=== PATIENT | male | born 1940 | race Caucasian/White ===

== ENCOUNTER 2021-09-14 18:34 | Observation (INO) ==
[2021-09-14] MEDS ORDERED: STAT IV Infusion **Titration per Protocol STA (18:38)
[2021-09-14] MEDS ORDERED: ONDANSETRON INJ 2 MG/ML 2 ML VIAL IV STA ×2 (18:42→18:56)
[2021-09-14] MEDS ORDERED: hydrALAZINE HCL 20 MG/ML VIAL IV STA ×2 (18:42→18:57)
[2021-09-14] MEDS ORDERED: hydrALAZINE HCL 20 MG/ML VIAL ONE (18:44)
[2021-09-14] MEDS ORDERED: niCARdipine 25 MG in SODIUM CHLORIDE 0.9% 240 ML IV SCH (18:45)
--- NOTE | 2021-09-14 18:47 | Emergency Department Note ---
Impression & Plan Intraparenchymal hematoma of brain, Midline shift of brain due to hematoma, Hemorrhagic cerebrovascular accident (CVA) ED Provider Note NAME: DANTE YBARRA AGE: 80 SEX: M : 1940 ARRIVES VIA: Walk-In INFORMANT: Patient ED PROVIDER(S): Eleazar Llamas DO CHIEF COMPLAINT: Possible stroke HPI: Patient is a 80-year-old male who presents to the ER for left-sided weakness. This all started about 5:20 PM. He sat down prior to this occurring as he felt it coming on. He was complaining of a headache but does not any more. He denies any chest pain or shortness of breath. No belly pain. No nausea, vomiting, or diarrhea. He takes aspirin but no other blood thinners. ROS: See above HPI for pertinent positives & negatives. A total of 10 systems reviewed and were otherwise negative. PAST MEDICAL HISTORY:See Below PAST SURGICAL HISTORY:See Below FAMILY HISTORY:See Below SOCIAL HISTORY:See Below HOME MEDICATIONS:See Below ALLERGIES:See Below VITALS:See Below PHYSICAL EXAMINATION: GENERAL: Sitting up in bed, alert, well appearing, well nourished, no distress, non-toxic EYE EXAM: normal conjunctiva. Left-sided neglect with right-sided gaze OROPHARYNX: no exudate, no erythema, lips, buccal mucosa, and tongue normal and mucous membranes are moist NECK: supple, no nuchal rigidity, no adenopathy, non-tender LUNGS: Clear to auscultation. Normal chest wall mechanics HEART: no murmurs, S1 normal and S2 normal ABDOMEN: abdomen soft, non-tender, normo-active bowel sounds, no masses, no rebound or guarding. UPPER EXTREMITIES: upper extremities are grossly normal. LOWER EXTREMITIES: No pitting edema. NEURO EXAM: Awake and alert with a right-sided gaze with left-sided neglect. Unable to move the left upper and left lower extremity. Facial droop. Slurred speech present. MEDICAL DECISION MAKING: Patient is a 80-year-old gentleman that presents the ER who received medical command call on as he had left-sided deficit with a rightward gaze. Stroke alert was called. IV was established blood work was obtained. He was taken immediately to CT. On review of the images he had a large right intraparenchymal hemorrhage with midline shift. Discussed with the son at bedside and he is a full code and they would want him transferred. They prefer to go to [facility]. Called [facility] [address]. Initially talked with Dr. Green and the neurologist. Following this discussed with far no from neurosurgery. Was able to send the images to him. He reviewed these and does not believe that this gentleman is a surgical candidate. Believe the likelihood of survival is about 20%. He recommended discussing with interventional neurology. Received a call back by Dr. rushing who is the neurosurgical resident who gave me Dr. Paddy Mccauley's phone number from interventional neurology. Rediscussed the case with him. 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 I had multiple conversations with multiple different family members and eventually all 4 sons were present at bedside with mother/. After multiple conversations as [facility] recommended keeping the patient here as he was not a neurosurgical candidate family decided to make him comfort care. The Cardene drip which was initially started was stopped. He was initially given 2 dose of IV hydralazine and labetalol. Pressures trended down from 250s to 140. His mental status deteriorated significantly throughout the stay in the ER. did not want any narcotics. Patient was admitted for comfort measures to Dr. Carlin rivera. Triage Nursing notes reviewed. Limited review of prior medical records performed Vital Signs: reviewed and remarkable for HTN Differential diagnosis: Differential Diagnosis includes but is not limited to ischemic Stroke, hemorrhagic stroke, bells palsy, mass, neoplasm, migraine headache, seizure, subarachnoid hemorrhage, TIA, and transient global amnesia. ER treatment provided: See below Diagnostics interpreted by me: ECG: Sinus rhythm rate 70 Normal axis No PVCs LVH QTC 462 Cardiac Monitoring: An order was placed for continuous cardiac monitoring. The monitor shows a rate of 70 with sinus rhythm. Laboratory studies: As stated above and show below. Imaging studies: CTs show diffuse intraparenchymal hematoma with midline shift Consultation(s): Multiple consults as discussed above Procedures: none Critical Care: I have personally spent 80 minutes of critical care time in the direct management of this patient. This includes bedside care, interpretation of diagnostic studies, and testing, discussion with consultants, patient, and family members, and other required patient management activities. This 80 minutes is in excess of all separately billable procedures. Past Med/Surg History Medical History (Updated 09/15/21 @ 01:02 by Eleazar Llamas DO) CVA (cerebral vascular accident) Hypertension Hypothyroid Syncope Social History (Updated 04/04/20 @ 10:04 by SARA Madden) Smoking Status: Never smoker Hx Alcohol Use: No Hx Substance Use: No Preferred Language: Cymro marital status: Current Living Situation: Spouse current occupational status: retired Feels Safe at Home: Yes Allergies Allergies Allergy/AdvReac Type Severity Reaction Status Date / Time No Known Allergies Allergy Mild Verified 04/04/20 09:36 Home Meds Previous Rx's Medication Instructions Recorded lisinopril 10 mg tablet 10 mg PO DAILY #30 tab 04/04/20 levothyroxine 88 mcg tablet 88 mcg PO DAILY #30 tab 08/03/21 (Synthroid) Results & Data (ED) Vital Signs Vital Signs - 24 hr 09/14/21 18:42 09/14/21 18:44 09/14/21 18:50 Temperature 36.7 C Temperature Source Oral Pulse Rate 75 80 68 Pulse Rate [Apical] 79 Pulse Rate from SpO2 Sensor 76 68 Respiratory Rate 12 15 19 Blood Pressure 254/131 H 254/131 H Blood Pressure [Right Arm] 226/118 H Blood Pressure Mean 172 172 Blood Pressure Mean [Right Arm] 154 Blood Pressure Position Lying Blood Pressure Position [Right Arm] Lying Pulse Oximetry 91 93 95 Oxygen Delivery Method Room Air Sepsis Recent Fever Within 48 Hours No Sepsis New/Unexplained Change in Mental Status Yes Sepsis Action Taken by Nursing No Action Required 09/14/21 19:00 09/14/21 19:10 09/14/21 19:11 Temperature Temperature Source Pulse Rate 82 76 Pulse Rate [Apical] 78 Pulse Rate from SpO2 Sensor 82 75 Respiratory Rate 12 15 13 Blood Pressure 184/103 H 156/73 H Blood Pressure [Right Arm] 156/73 H Blood Pressure Mean 130 100 Blood Pressure Mean [Right Arm] 100 Blood Pressure Position Blood Pressure Position [Right Arm] Sitting Pulse Oximetry 93 93 95 Oxygen Delivery Method Room Air Sepsis Recent Fever Within 48 Hours Sepsis New/Unexplained Change in Mental Status Sepsis Action Taken by Nursing 09/14/21 19:20 09/14/21 19:30 09/14/21 19:32 Temperature Temperature Source Pulse Rate 74 76 Pulse Rate [Apical] 77 Pulse Rate from SpO2 Sensor 75 76 Respiratory Rate 16 17 13 Blood Pressure 151/69 H 136/73 Blood Pressure [Right Arm] 136/73 Blood Pressure Mean 96 94 Blood Pressure Mean [Right Arm] 94 Blood Pressure Position Blood Pressure Position [Right Arm] Sitting Pulse Oximetry 94 85 L 95 Oxygen Delivery Method Room Air Sepsis Recent Fever Within 48 Hours Sepsis New/Unexplained Change in Mental Status Sepsis Action Taken by Nursing 09/14/21 19:40 09/14/21 19:50 09/14/21 20:00 Temperature Temperature Source Pulse Rate 81 77 78 Pulse Rate [Apical] Pulse Rate from SpO2 Sensor 80 79 80 Respiratory Rate 16 15 52 H Blood Pressure 140/65 Blood Pressure [Right Arm] Blood Pressure Mean 90 Blood Pressure Mean [Right Arm] Blood Pressure Position Blood Pressure Position [Right Arm] Pulse Oximetry 96 95 95 Oxygen Delivery Method Sepsis Recent Fever Within 48 Hours Sepsis New/Unexplained Change in Mental Status Sepsis Action Taken by Nursing 09/14/21 20:10 09/14/21 20:20 09/14/21 20:30 Temperature Temperature Source Pulse Rate 78 84 68 Pulse Rate [Apical] Pulse Rate from SpO2 Sensor 83 84 76 Respiratory Rate 15 23 21 Blood Pressure 153/67 H Blood Pressure [Right Arm] Blood Pressure Mean 95 Blood Pressure Mean [Right Arm] Blood Pressure Position Blood Pressure Position [Right Arm] Pulse Oximetry 93 93 93 Oxygen Delivery Method Sepsis Recent Fever Within 48 Hours Sepsis New/Unexplained Change in Mental Status Sepsis Action Taken by Nursing 09/14/21 20:40 09/14/21 20:50 09/14/21 21:00 Temperature Temperature Source Pulse Rate 72 72 69 Pulse Rate [Apical] Pulse Rate from SpO2 Sensor 73 71 70 Respiratory Rate 23 16 10 L Blood Pressure 122/74 133/61 Blood Pressure [Right Arm] Blood Pressure Mean 90 85 Blood Pressure Mean [Right Arm] Blood Pressure Position Blood Pressure Position [Right Arm] Pulse Oximetry 96 95 95 Oxygen Delivery Method Sepsis Recent Fever Within 48 Hours Sepsis New/Unexplained Change in Mental Status Sepsis Action Taken by Nursing 09/14/21 21:10 09/14/21 21:20 09/14/21 21:30 Temperature Temperature Source Pulse Rate 73 70 75 Pulse Rate [Apical] Pulse Rate from SpO2 Sensor 82 69 74 Respiratory Rate 13 11 L 16 Blood Pressure 129/65 Blood Pressure [Right Arm] Blood Pressure Mean 86 Blood Pressure Mean [Right Arm] Blood Pressure Position Blood Pressure Position [Right Arm] Pulse Oximetry 96 94 94 Oxygen Delivery Method Sepsis Recent Fever Within 48 Hours Sepsis New/Unexplained Change in Mental Status Sepsis Action Taken by Nursing Laboratory Data Result diagrams: 09/14/21 18:42 09/14/21 18:42 Lab Results 09/14/21 09/14/21 09/14/21 Range/Units 18:42 18:42 18:42 WBC 7.69 (4.8-10.8) K/uL RBC 4.07 L (4.7-6.1) M/uL Hgb 12.6 L (14.0-18.0) g/dL Hct 38.0 L (42-52) % MCV 93.4 (80-100) fL MCH 31.0 (25-34) pg MCHC 33.2 (32-36) g/dL RDW Std Deviation 46.3 (36.4-46.3) fL RDW Coeff of Darryl 13.5 (11.5-14.5) % Plt Count 258 (130-400) K/uL MPV 10.5 H (7.4-10.4) fL Immature Gran % (Auto) 0.1 % Neut % (Auto) 55.5 % Lymph % (Auto) 35.6 % Spencer % (Auto) 7.2 % Eos % (Auto) 1.3 % Baso % (Auto) 0.3 % Neut # (Auto) 4.27 (1.4-6.5) K/uL Lymph # (Auto) 2.74 (1.2-3.4) K/uL Spencer # (Auto) 0.55 (0.11-0.59) K/uL Eos # (Auto) 0.10 (0-0.5) K/uL Baso # (Auto) 0.02 (0-0.2) K/uL Immature Gran # (Auto) 0.01 (0.00-0.02) K/uL PT 10.3 (9.0-12.0) Seconds INR 1.0 (0.9-1.1) APTT 26.0 (21.0-31.0) Seconds PTT Ratio 1.0 Sodium (136-145) mmol/L Potassium (3.5-5.1) mmol/L Chloride (98-107) mmol/L Carbon Dioxide (21-32) mmol/L Anion Gap (3-11) BUN (7-18) mg/dl Creatinine (0.6-1.4) mg/dl Est Cr Clr Drug Dosing ml/min Est GFR ( Amer) ml/min Est GFR (Non-Af Amer) ml/min BUN/Creatinine Ratio (10-20) Glucose (70-99) mg/dl Calcium (8.5-10.1) mg/dl Magnesium (1.8-2.4) mg/dl Total Bilirubin (0.2-1) mg/dl AST (15-37) U/L ALT (12-78) U/L Alkaline Phosphatase (45-117) U/L Troponin I (0-0.045) ng/ml Total Protein (6.4-8.2) gm/dl Albumin (3.4-5.0) gm/dl Globulin (2.5-4.0) gm/dl Albumin/Globulin Ratio (0.9-2) COVID-19 Eval Order SARS-CoV-2 (PCR) (Negative) Blood Type A Negative Antibody Screen NEGATIVE 09/14/21 09/14/21 09/14/21 Range/Units 18:42 19:16 19:16 WBC (4.8-10.8) K/uL RBC (4.7-6.1) M/uL Hgb (14.0-18.0) g/dL Hct (42-52) % MCV (80-100) fL MCH (25-34) pg MCHC (32-36) g/dL RDW Std Deviation (36.4-46.3) fL RDW Coeff of Darryl (11.5-14.5) % Plt Count (130-400) K/uL MPV (7.4-10.4) fL Immature Gran % (Auto) % Neut % (Auto) % Lymph % (Auto) % Spencer % (Auto) % Eos % (Auto) % Baso % (Auto) % Neut # (Auto) (1.4-6.5) K/uL Lymph # (Auto) (1.2-3.4) K/uL Spencer # (Auto) (0.11-0.59) K/uL Eos # (Auto) (0-0.5) K/uL Baso # (Auto) (0-0.2) K/uL Immature Gran # (Auto) (0.00-0.02) K/uL PT (9.0-12.0) Seconds INR (0.9-1.1) APTT (21.0-31.0) Seconds PTT Ratio Sodium 138 (136-145) mmol/L Potassium 3.9 (3.5-5.1) mmol/L Chloride 105 (98-107) mmol/L Carbon Dioxide 27 (21-32) mmol/L Anion Gap 6.0 (3-11) BUN 22 H (7-18) mg/dl Creatinine 1.45 H (0.6-1.4) mg/dl Est Cr Clr Drug Dosing 40.2 ml/min Est GFR ( Amer) 53.1 ml/min Est GFR (Non-Af Amer) 45.8 ml/min BUN/Creatinine Ratio 15.3 (10-20) Glucose 115 H (70-99) mg/dl Calcium 9.3 (8.5-10.1) mg/dl Magnesium 2.3 (1.8-2.4) mg/dl Total Bilirubin 0.3 (0.2-1) mg/dl AST 26 (15-37) U/L ALT 21 (12-78) U/L Alkaline Phosphatase 53 (45-117) U/L Troponin I < 0.015 (0-0.045) ng/ml Total Protein 8.1 (6.4-8.2) gm/dl Albumin 3.5 (3.4-5.0) gm/dl Globulin 4.6 H (2.5-4.0) gm/dl Albumin/Globulin Ratio 0.8 L (0.9-2) COVID-19 Eval Order Covid19 at [facility] SARS-CoV-2 (PCR) NEGATIVE (Negative) Blood Type Antibody Screen Administered Medications Discontinued Medications Glycopyrrolate (Glycopyrrolate 0.2 Mg/Ml Vial) Confirm Administered Dose 0.4 mg .ROUTE .STK-MED ONE Stop: 09/14/21 22:41 Last Admin: 09/14/21 22:41 Dose: 0.2 mg Documented by: [id number] Hydralazine HCl (Hydralazine Hcl 20 Mg/Ml Vial) 10 mg IV NOW STA Stop: 09/14/21 18:43 Last Admin: 09/14/21 18:45 Dose: 10 mg Documented by: [id number] Hydralazine HCl (Hydralazine Hcl 20 Mg/Ml Vial) Confirm Administered Dose 20 mg .ROUTE .STK-MED ONE Stop: 09/14/21 18:45 Last Admin: 09/14/21 18:52 Dose: Not Given Documented by: [id number] Hydralazine HCl (Hydralazine Hcl 20 Mg/Ml Vial) 10 mg IV NOW STA Stop: 09/14/21 18:58 Last Admin: 09/14/21 18:59 Dose: 10 mg Documented by: [id number] Nicardipine HCl 25 mg/ Sodium (Chloride) 250 mls @ 0 mls/hr IV .Q0M REDD; Protocol Stop: 10/14/21 18:44 Last Titration: 09/15/21 00:18 Dose: 0 mg/hr, 0 mls/hr Documented by: [id number] Titration: 09/14/21 22:41 Dose: 0 mg/hr, 0 mls/hr Documented by: [id number] Admin: 09/14/21 18:50 Dose: 5 mg/hr, 50 mls/hr Documented by: [id number] Cosigned by: [id number] Nicardipine HCl 25 mg/ Sodium (Chloride) 250 mls @ 50 mls/hr IV .Q5H REDD; Protocol Stop: 10/14/21 18:44 Last Admin: 09/14/21 19:05 Dose: Not Given Documented by: [id number] Daysicellaneous (Stat Iv Infusion Titration Per Protocol) 1 ea N/A NOW STA Stop: 09/14/21 18:39 Last Admin: 09/14/21 19:06 Dose: 1 ea Documented by: [id number] Miscellaneous (Rapid Sequence Induction Bag) Confirm Administered Dose 1 ea .ROUTE .STK-MED ONE Stop: 09/14/21 19:14 Last Admin: 09/15/21 00:17 Dose: Not Given Documented by: [id number] Ondansetron HCl (Ondansetron Inj 2 Mg/Ml 2 Ml Vial) 4 mg IV NOW STA Stop: 09/14/21 18:43 Last Admin: 09/14/21 18:45 Dose: 4 mg Documented by: [id number] Ondansetron HCl (Ondansetron Inj 2 Mg/Ml 2 Ml Vial) 4 mg IV NOW STA Stop: 09/14/21 18:57 Last Admin: 09/14/21 18:58 Dose: 4 mg Documented by: [id number] Imaging Data Radiologist's Impression: Chest X-Ray 09/14/21 18:38 XR chest 1V portable HISTORY: 80 years-old Male Stroke Like Symptoms acute strokelike symptoms COMPARISON: Chest radiograph and CTA chest 06/03/2009 TECHNIQUE: Portable AP view of the chest FINDINGS: Cardiac silhouette is mildly enlarged. Calcified granulomata of the right lung base redemonstrated along with mild bibasilar chronic interstitial coarsening. No pneumothorax, pleural effusion, overt pulmonary edema or lobar airspace consolidation. Degenerative changes of the shoulders and spine. IMPRESSION: No acute process. ACT 112: Negative or not required by law. The above report was generated using voice recognition software. It may contain grammatical, syntax or spelling errors. Electronically signed by: Drew Laws M.D. 09/14/2021 6:[address] 09/14/21 18:38 CT head/brain wo con CLINICAL HISTORY: 80 years-old Male with Stroke Like Symptoms. Acute strokelike symptoms TECHNIQUE: Multiple axial CT images of the head were obtained without contrast. A dose lowering technique was utilized adhering to the principles of ALARA. COMPARISON: Head CT 06/09/2016 FINDINGS: There is a large acute intraparenchymal hematoma of the right cerebral hemisphere which involves the frontal and temporal lobes and right basal ganglia measures up to 7.1 x 4.5 x 6.0 cm. This causes mass effect with partial effa cement of the right lateral ventricle resulting in approximately 8 mm of leftward midline shift. Local adjacent sulcal effacement with gyral expansion. Mild surrounding vasogenic edema. Motion degraded study. No definite abnormal extra-axial collections or acute territorial infarct. Mild age-related involutional changes with white matter hypodensities suggestive of chronic microvascular ischemic disease. The calvarium is intact. The paranasal sinuses, mastoid air cells, and middle ear cavities are clear. IMPRESSION: 1. Large acute intraparenchymal hematoma of the right frontal and temporal lobes and right basal ganglia measures up to 7.1 cm resulting in adjacent mass effect with partial effacement of the right lateral ventricle. 2. 8 mm leftward midline shift. Findings were discussed with Dr. Llamas on 09/14/2021 at 6:53 PM. ACT 112: Negative or not required by law. The above report was generated using voice recognition software. It may contain grammatical, syntax or spelling errors. Electronically signed by: Drew Laws M.D. 09/14/2021 6:53 PM Discharge Plan Visit Data Chief Complaint: Stroke Alert ED Provider: Eleazar Llamas Discharge Problem: Intraparenchymal hematoma of brain, Midline shift of brain due to hematoma, Hemorrhagic cerebrovascular accident (CVA) Patient Disposition: Admitted As Inpatient Discharge Instructions Interventions: ED Discharge Assessment Last Done: 09/14/21 22:38
--- NOTE | 2021-09-14 18:55 | CT Scan Report ---
CT head/brain wo con CLINICAL HISTORY: 80 years-old Male with Stroke Like Symptoms. Acute strokelike symptoms TECHNIQUE: Multiple axial CT images of the head were obtained without contrast. A dose lowering tech nique was utilized adhering to the principles of ALARA. COMPARISON: Head CT 06/09/2016 FINDINGS: There is a large acute intraparenchymal hematoma of the right cerebral hemisphere which involves the frontal and temporal lobes and right basal ganglia measures up to 7.1 x 4.5 x 6.0 cm. This causes mas s effect with partial effacement of the right lateral ventricle resulting in approximately 8 mm of le ftward midline shift. Local adjacent sulcal effacement with gyral expansion. Mild surrounding vasogen ic edema. Motion degraded study. No definite abnormal extra-axial collections or acute territorial in farct. Mild age-related involutional changes with white matter hypodensities suggestive of chronic mi crovascular ischemic disease. The calvarium is intact. The paranasal sinuses, mastoid air cells, and middle ear cavities are clear . IMPRESSION: 1. Large acute intraparenchymal hematoma of the right frontal and temporal lobes and right basal gang bella measures up to 7.1 cm resulting in adjacent mass effect with partial effacement of the right late ral ventricle. 2. 8 mm leftward midline shift. Findings were discussed with Dr. Llamas on 09/14/2021 at 6:53 PM. ACT 112: Negative or not required by law. The above report was generated using voice recognition software. It may contain grammatical, syntax o r spelling errors. Electronically signed by: Drew Laws M.D. 09/14/2021 6:53 PM
--- NOTE | 2021-09-14 18:56 | XRay Report ---
XR chest 1V portable HISTORY: 80 years-old Male Stroke Like Symptoms acute strokelike symptoms COMPARISON: Chest radiograph and CTA chest 06/03/2009 TECHNIQUE: Portable AP view of the chest FINDINGS: Cardiac silhouette is mildly enlarged. Calcified granulomata of the right lung base redemonstrated al paulo with mild bibasilar chronic interstitial coarsening. No pneumothorax, pleural effusion, overt pul monary edema or lobar airspace consolidation. Degenerative changes of the shoulders and spine. IMPRESSION: No acute process. ACT 112: Negative or not required by law. The above report was generated using voice recognition software. It may contain grammatical, syntax o r spelling errors. Electronically signed by: Drew Laws M.D. 09/14/2021 6:55 PM
[2021-09-14 19:00] LABS: Basophils # (auto) 0.02 K/uL (0-0.2); Basophils % (auto) 0.3 %; Eosinophils % (auto) 1.3 %; Hemoglobin 12.6 g/dL (14.0-18.0); Immature Granulocytes # (auto) 0.01 K/uL (0.00-0.02); Immature Granulocytes % (auto) 0.1 %; Lymphocytes # (auto) 2.74 K/uL (1.2-3.4); Lymphocytes % (auto) 35.6 %; Mean Corpuscular Hgb Conc 33.2 g/dL (32-36); Mean Corpuscular Volume 93.4 fL (80-100); Mean Platelet Volume 10.5 fL (7.4-10.4); Monocytes # (auto) 0.55 K/uL (0.11-0.59); Monocytes % (auto) 7.2 %; Neutrophils # (auto) 4.27 K/uL (1.4-6.5); Neutrophils % (auto) 55.5 %; Platelet Count 258 K/uL (130-400); RDW Coefficient of Variation 13.5 % (11.5-14.5); RDW Standard Deviation 46.3 fL (36.4-46.3); Red Blood Count 4.07 M/uL (4.7-6.1); White Blood Count 7.69 K/uL (4.8-10.8)
[2021-09-14 19:10] LABS: Prothrombin Time 10.3 Seconds (9.0-12.0)
[2021-09-14] MEDS ORDERED: RAPID SEQUENCE INDUCTION BAG ONE (19:13)
[2021-09-14 19:22] LABS: Alanine Aminotransferase 21 U/L (12-78); Albumin Level 3.5 gm/dl (3.4-5.0); Aspartate Aminotransferase 26 U/L (15-37); BUN Creatinine Ratio 15.3 (10-20); Blood Urea Nitrogen 22 mg/dl (7-18); Calcium 9.3 mg/dl (8.5-10.1); Carbon Dioxide 27 mmol/L (21-32); Chloride 105 mmol/L (98-107); Creatinine Clr Calc Pharmacy 40.2 ml/min; Est GFR (African American) 53.1 ml/min; Est GFR (Non-African American) 45.8 ml/min; Glucose 115 mg/dl (70-99); Magnesium 2.3 mg/dl (1.8-2.4); Potassium 3.9 mmol/L (3.5-5.1); Sodium 138 mmol/L (136-145)
[2021-09-14 19:27] LABS: Albumin Globulin Ratio 0.8 (0.9-2); Alkaline Phosphatase 53 U/L (45-117); Bilirubin,Total 0.3 mg/dl (0.2-1); Globulin 4.6 gm/dl (2.5-4.0); Total Protein 8.1 gm/dl (6.4-8.2); Troponin I < 0.015 ng/ml (0-0.045)
--- NOTE | 2021-09-14 21:42 | History & Physical Report ---
Date of Service September 14, 2021 Assessment & Plan (1) Intraparenchymal hematoma of brain: Plan: 80 yo M brought to ER found to have large hemorrhagic intraparenchymal hematoma with midline shift. Hemorrhagic CVA - as evidenced on Head CT wo con 1. Large acute intraparenchymal hematoma of the right frontal and temporal lobes and right basal ganglia measures up to 7.1 cm resulting in adjacent mass effect with partial effacement of the right lateral ventricle. 2. 8 mm leftward midline shift. - ER physician discussed case with [facility] neurosurgery/neurology/interventional radiology for transfer vs. management at [facility] - family decided not to pursue aggressive measures and transitioned to comfort care as below Comfort Care - bp checks/vitals dc'd - morphine/roxanol prn for air hunger and pain - palliative consult for assistance with home palliative medications/hospice DVT ppx: held, contraindicated FEN/GI: sips/food prn for comfort Bowel regimen: NA Code Status: DNR/DNI, [employer] Dispo: med/surg (2) Midline shift of brain due to hematoma: (3) Hemorrhagic cerebrovascular accident (CVA): History of Present Illness Primary Care Provider: SARA Madden 80 yo Magdy M brought to ER for evaluation of sudden onset left sided weakness after a headache, worked up as a stroke alert, found to have devastating R frontal and temporal lobe intraparenchymal hematoma with midline shift. ER provider discussed case and management with ICU, neurosurgery, neurology and interventional radiology teams at [facility]. Decision made by family to make patient comfort care. Family unable to transport patient home tonight and don't currently have hospice/palliative resources -- admitted for overnight management. Allergies Allergy/AdvReac Type Severity Reaction Status Date / Time No Known Allergies Allergy Mild Verified 04/04/20 09:36 Home Medications Medication Instructions Recorded Confirmed Type lisinopril 10 mg tablet 10 mg PO DAILY #30 tab 04/04/20 04/04/20 Rx levothyroxine 88 mcg tablet 88 mcg PO DAILY #30 tab 08/03/21 Rx (Synthroid) Past Med/Surg History Medical History (Updated 09/15/21 @ 01:02 by Eleazar Llamas DO) CVA (cerebral vascular accident) Hypertension Hypothyroid Syncope Social History (Updated 04/04/20 @ 10:04 by SARA Madden) Smoking Status: Unknown if ever smoked Hx Alcohol Use: No Preferred Language: Greenlandic Communication Ability: Unable Decorator Lighting Fixtures Required: No Beliefs That Will Affect Care: Oriental Orthodox marital status: Current Living Situation: Spouse current occupational status: retired Feels Safe at Home: Yes Assistive Devices: Oxygen - Continuous Assistive Devices Comment: PT UNABLE TO ANSWER DUE TO PHYSICAL STATE Review of Systems Review of Systems: Unobtainable due to reduced consciousness Physical Exam Physical Exam: const: laying comfortably in bed card: rrr pulm: breathing easily on room air, no retraction, no respiratory distress Results & Data Results & Data ([facility]) Vital Signs (Past 12 Hours) Vital Signs Temp Pulse Pulse Resp BP BP Pulse Ox 09/14/21 20:40 72 23 122/74 96 09/14/21 20:30 68 21 93 09/14/21 20:20 84 23 153/67 H 93 09/14/21 20:10 78 15 93 09/14/21 20:00 78 52 H 95 09/14/21 19:50 77 15 95 09/14/21 19:40 81 16 140/65 96 09/14/21 19:32 77 13 136/73 95 09/14/21 19:30 76 17 136/73 85 L 09/14/21 19:20 74 16 151/69 H 94 09/14/21 19:11 78 13 156/73 H 95 09/14/21 19:10 76 15 156/73 H 93 09/14/21 19:00 82 12 184/103 H 93 09/14/21 18:50 68 19 95 09/14/21 18:44 36.7 C 80 79 15 254/131 H 226/118 H 93 09/14/21 18:42 75 12 254/131 H 91 Laboratory Results Laboratory Results WBC 7.69 K/uL (4.8-10.8) 09/14/21 18:42 RBC 4.07 M/uL (4.7-6.1) L 09/14/21 18:42 Hgb 12.6 g/dL (14.0-18.0) L 09/14/21 18:42 Hct 38.0 % (42-52) L 09/14/21 18:42 MCV 93.4 fL (80-100) 09/14/21 18:42 MCH 31.0 pg (25-34) 09/14/21 18:42 MCHC 33.2 g/dL (32-36) 09/14/21 18:42 RDW Std Deviation 46.3 fL (36.4-46.3) 09/14/21 18:42 RDW Coeff of Darryl 13.5 % (11.5-14.5) 09/14/21 18:42 Plt Count 258 K/uL (130-400) 09/14/21 18:42 MPV 10.5 fL (7.4-10.4) H 09/14/21 18:42 Immature Gran % (Auto) 0.1 % 09/14/21 18:42 Neut % (Auto) 55.5 % 09/14/21 18:42 Lymph % (Auto) 35.6 % 09/14/21 18:42 [place] % (Auto) 7.2 % 09/14/21 18:42 Eos % (Auto) 1.3 % 09/14/21 18:42 Baso % (Auto) 0.3 % 09/14/21 18:42 Neut # (Auto) 4.27 K/uL (1.4-6.5) 09/14/21 18:42 Lymph # (Auto) 2.74 K/uL (1.2-3.4) 09/14/21 18:42 [place] # (Auto) 0.55 K/uL (0.11-0.59) 09/14/21 18:42 Eos # (Auto) 0.10 K/uL (0-0.5) 09/14/21 18: Baso # (Auto) 0.02 K/uL (0-0.2) 09/14/21 18:42 Immature Gran # (Auto) 0.01 K/uL (0.00-0.02) 09/14/21 18:42 PT 10.3 Seconds (9.0-12.0) 09/14/21 18:42 INR 1.0 (0.9-1.1) 09/14/21 18:42 APTT 26.0 Seconds (21.0-31.0) 09/14/21 18:42 PTT Ratio 1.0 09/14/21 18:42 Sodium 138 mmol/L (136-145) 09/14/21 18:42 Potassium 3.9 mmol/L (3.5-5.1) 09/14/21 18:42 Chloride 105 mmol/L (98-107) 09/14/21 18:42 Carbon Dioxide 27 mmol/L (21-32) 09/14/21 18:42 Anion Gap 6.0 (3-11) 09/14/21 18:42 BUN 22 mg/dl (7-18) H 09/14/21 18:42 Creatinine 1.45 mg/dl (0.6-1.4) H 09/14/21 18:42 Est Cr Clr Drug Dosing 40.2 ml/min 09/14/21 18:42 Est GFR ( Amer) 53.1 ml/min 09/14/21 18:42 Est GFR (Non-Af Amer) 45.8 ml/min 09/14/21 18:42 BUN/Creatinine Ratio 15.3 (10-20) 09/14/21 18:42 Glucose 115 mg/dl (70-99) H 09/14/21 18:42 Calcium 9.3 mg/dl (8.5-10.1) 09/14/21 18:42 Magnesium 2.3 mg/dl (1.8-2.4) 09/14/21 18:42 Total Bilirubin 0.3 mg/dl (0.2-1) 09/14/21 18:42 AST 26 U/L (15-37) 09/14/21 18:42 ALT 21 U/L (12-78) 09/14/21 18:42 Alkaline Phosphatase 53 U/L (45-117) 09/14/21 18:42 Troponin I < 0.015 ng/ml (0-0.045) 09/14/21 18:42 Total Protein 8.1 gm/dl (6.4-8.2) 09/14/21 18:42 Albumin 3.5 gm/dl (3.4-5.0) 09/14/21 18:42 Globulin 4.6 gm/dl (2.5-4.0) H 09/14/21 18:42 Albumin/Globulin Ratio 0.8 (0.9-2) L 09/14/21 18:42 COVID-19 Eval Order Covid19 at [facility] 09/14/21 19:16 SARS-CoV-2 (PCR) NEGATIVE (Negative) 09/14/21 19:16 Blood Type A Negative 09/14/21 18:42 Antibody Screen NEGATIVE 09/14/21 18:42 Impressions Chest X-Ray 09/14/21 18:38 XR chest 1V portable HISTORY: 80 years-old Male Stroke Like Symptoms acute strokelike symptoms COMPARISON: Chest radiograph and CTA chest 06/03/2009 TECHNIQUE: Portable AP view of the chest FINDINGS: Cardiac silhouette is mildly enlarged. Calcified granulomata of the right lung base redemonstrated along with mild bibasilar chronic interstitial coarsening. No pneumothorax, pleural effusion, overt pulmonary edema or lobar airspace consolidation. Degenerative changes of the shoulders and spine. IMPRESSION: No acute process. ACT 112: Negative or not required by law. The above report was generated using voice recognition software. It may contain grammatical, syntax or spelling errors. Electronically signed by: Drew Laws M.D. 09/14/2021 6:[address] 09/14/21 18:38 CT head/brain wo con CLINICAL HISTORY: 80 years-old Male with Stroke Like Symptoms. Acute strokelike symptoms TECHNIQUE: Multiple axial CT images of the head were obtained without contrast. A dose lowering technique was utilized adhering to the principles of ALARA. COMPARISON: Head CT 06/09/2016 FINDINGS: There is a large acute intraparenchymal hematoma of the right cerebral hemisphere which involves the frontal and temporal lobes and right basal ganglia measures up to 7.1 x 4.5 x 6.0 cm. This causes mass effect with partial effacement of the right lateral ventricle resulting in approximately 8 mm of leftward midline shift. Local adjacent sulcal effacement with gyral expansion. Mild surrounding vasogenic edema. Motion degraded study. No definite abnormal extra-axial collections or acute territorial infarct. Mild age-related involutional changes with white matter hypodensities suggestive of chronic microvascular ischemic disease. The calvarium is intact. The paranasal sinuses, mastoid air cells, and middle ear cavities are clear. IMPRESSION: 1. Large acute intraparenchymal hematoma of the right frontal and temporal lobes and right basal ganglia measures up to 7.1 cm resulting in adjacent mass effect with partial effacement of the right lateral ventricle. 2. 8 mm leftward midline shift. Findings were discussed with Dr. Llamas on 09/14/2021 at 6:53 PM. ACT 112: Negative or not required by law. The above report was generated using voice recognition software. It may contain grammatical, syntax or spelling errors. Electronically signed by: Drew Laws M.D. 09/14/2021 6:53 PM Supervising Physician Co-Signing Physician Notes Patient seen and examined, chart reviewed, case discussed with Dr. Zarate and I agree with her assessment and plan as documented above. In brief, patient is a 80yo male with history of HTN, Hypothyroidism and prior CVA presenting with sudden onset left sided weakness and headache. He was found to have a large acute intraparenchymal hematoma of the right frontal and temporal lobes and right basal ganglia measuring up to 7.1 cm resulting in adjacent mass effect with partial effacement of the right lateral ventricle and 8mm midline shift. Family discussed options with ER attending. They prefer comfort measure. Ideally plan to take the patient home tomorrow so he can pass away in his home. On exam he is unresponsive Family is at bedside Labs and images reviewed Assessment/Plan 80yo male with acute right frontal and temporal intraparenchymal hematoma. Will most likely be a terminal event. No intervention. Family is at bedside and wish to pursue comfort measures. Goal is to get the patinent home tomorrow with any necessary services and medications. -Palliative consult -Comfort measures activated -Remainder of pain as above Resident Activity Tracking Resident Involvement: Resident Care Provided Care Provided: Adult Hospital Medicine
[2021-09-14] MEDS ORDERED: GLYCOPYRROLATE 0.2 MG/ML VIAL ONE (22:40)
[2021-09-14] MEDS ORDERED: MoRPHine SULFATE 5 MG/0.25 ML UDP PO PRN (23:42)
[2021-09-14] MEDS ORDERED: ONDANSETRON 4 MG OD TAB SL PRN (23:42)
[2021-09-14] MEDS ORDERED: LORazepam 0.5 MG TAB PO PRN (23:42)
[2021-09-14] MEDS ORDERED: GLYCOPYRROLATE 0.2 MG/ML VIAL IV PRN (23:42)
[2021-09-14] MEDS ORDERED: ONDANSETRON INJ 2 MG/ML 2 ML VIAL IV PRN (23:42)
[2021-09-14] MEDS ORDERED: LORazepam 0.5 MG/1 ML VIAL IV PRN (23:42)
--- NOTE | 2021-09-15 02:49 | Billing Data ---
Date of Service September 14, 2021 Coding Level of Care Code INT OBSERVATION CARE 50M LVL 2
--- NOTE | 2021-09-15 07:49 | Electrocardiogram Report ---
Test Reason : Blood Pressure : / mmHG Vent. Rate : 070 BPM Atrial Rate : 070 BPM P-R Int : 178 ms QRS Dur : 098 ms QT Int : 428 ms P-R-T Axes : 076 042 053 degrees QTc Int : 462 ms Normal sinus rhythm Possible Left atrial enlargement Left ventricular hypertrophy Diffuse Minor Nonspecific ST abnormality Abnormal ECG When compared with ECG of 09-JUN-2016 09:36, Premature atrial complexes are no longer Present Nonspecific ST abnormality now present Confirmed by Pranav Ramachandran ([id number]) on 09/15/2021 7:49:02 AM Referred By: REFERRED SELF Confirmed By:Pranav Ramachandran
--- NOTE | 2021-09-15 08:04 | Discharge Summary ---
Date of Service September 15, 2021 Admission HPI Per Admitting Provider 80 yo Jadiel M brought to ER for evaluation of sudden onset left sided weakness after a headache, worked up as a stroke alert, found to have devastating R frontal and temporal lobe intraparenchymal hematoma with midline shift. ER provider discussed case and management with ICU, neurosurgery, neurology and interventional radiology teams at [facility]. Decision made by family to make patient comfort care. Family unable to transport patient home tonight and don't currently have hospice/palliative resources -- admitted for overnight management. Admission Exam Per Admitting Provider const: laying comfortably in bed card: rrr pulm: breathing easily on room air, no retraction, no respiratory distress Principal Diagnosis Hemorrhagic CVA with hematoma and midline shift Discharge Exam 80yo elderly jadiel male resting in bed with family at bedside, no able to follow commands or answer questions due to cognitive status pupils fixed, eyes anicteric dry mmm Resp: no accessory muscle use, not tachypneic, but does appear to have some air hunger at times during multiple visits(family believes comfortable and refusing morphine at this time), on 2L NC with SpO2 92% -- asked to increase back to 3L, lungs diminished on 2L, bibasilar crackles CV: RRR, no edema : +BS, soft, non-tender Skin: warm, dry, no mottling MSK: not moving any extremities Discharge Data Allergies Allergy/AdvReac Type Severity Reaction Status Date / Time No Known Allergies Allergy Mild Verified 04/04/20 09:36 Consultations 09/14/21 21:34 ED Decision to Admit Stat 09/15/21 00:23 Consult Palliative Care Routine Ordered Studies Chest X-Ray 09/14/21 18:38 XR chest 1V portable HISTORY: 80 years-old Male Stroke Like Symptoms acute strokelike symptoms COMPARISON: Chest radiograph and CTA chest 06/03/2009 TECHNIQUE: Portable AP view of the chest FINDINGS: Cardiac silhouette is mildly enlarged. Calcified granulomata of the right lung base redemonstrated along with mild bibasilar chronic interstitial coarsening. No pneumothorax, pleural effusion, overt pulmonary edema or lobar airspace consolidation. Degenerative changes of the shoulders and spine. IMPRESSION: No acute process. ACT 112: Negative or not required by law. The above report was generated using voice recognition software. It may contain grammatical, syntax or spelling errors. Electronically signed by: Drew Laws M.D. 09/14/2021 6:[address] 09/14/21 18:38 CT head/brain wo con CLINICAL HISTORY: 80 years-old Male with Stroke Like Symptoms. Acute strokelike symptoms TECHNIQUE: Multiple axial CT images of the head were obtained without contrast. A dose lowering technique was utilized adhering to the principles of ALARA. COMPARISON: Head CT 06/09/2016 FINDINGS: There is a large acute intraparenchymal hematoma of the right cerebral hemisphere which involves the frontal and temporal lobes and right basal ganglia measures up to 7.1 x 4.5 x 6.0 cm. This causes mass effect with partial effacement of the right lateral ventricle resulting in approximately 8 mm of leftward midline shift. Local adjacent sulcal effacement with gyral expansion. Mild surrounding vasogenic edema. Motion degraded study. No definite abnormal extra-axial collections or acute territorial infarct. Mild age-related involutional changes with white matter hypodensities suggestive of chronic microvascular ischemic disease. The calvarium is intact. The paranasal sinuses, mastoid air cells, and middle ear cavities are clear. IMPRESSION: 1. Large acute intraparenchymal hematoma of the right frontal and temporal lobes and right basal ganglia measures up to 7.1 cm resulting in adjacent mass effect with partial effacement of the right lateral ventricle. 2. 8 mm leftward midline shift. Findings were discussed with Dr. Llamas on 09/14/2021 at 6:53 PM. ACT 112: Negative or not required by law. The above report was generated using voice recognition software. It may contain grammatical, syntax or spelling errors. Electronically signed by: Drew Laws M.D. 09/14/2021 6:53 PM Hospital Course (1) Intraparenchymal hematoma of brain: 80 yo M brought to ER for left sided weakness, found to have large hemorrhagic intraparenchymal hematoma with midline shift. Stroke alert called by ER and patient taken immediately to CT which revealed: * large acute intraparenchymal hematoma of the right frontal and temporal lobes and right basal ganglia measures up to 7.1 cm resulting in adjacent mass effect with partial effacement of the right lateral ventricle. * 8 mm leftward midline shift. 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 ER with multiple conversations with family, all sons and at bedside and decision was made to make comfort care. Cardene gtt stopped (also was given IV hydralazine and labetalol with pressures trending down) Mental status deteriorated significantly through stay in ER and was admitted to medicine service while arrangement made to take patient home on hospice as family was unable to take home directly from the ER without resources. Palliative consulted, however not in building but did discuss via phone. Encouraged morphine for air hunger and this was attempted multiple times but family felt he looked comfortable. Very insistent on getting patient home [facility] and arranged for for [place] [facility] bed and transport in next 1 hour this morning Hold up initially for oxygen, as would have been 4 hours from [place], but discussed with family if able to rent locally wound contact [place]. this was arranged and O2 received before d/c Rx for pain medication, Ativan for agitation, and glycopyrrolate for secretions sent at d/c and CM arranged for hospice. Of note, informed that patient on way out did have periods of witnessed apnea, however family still insistent on bring patient home to in his own home with family surrounding. (2) Midline shift of brain due to hematoma: (3) Hemorrhagic cerebrovascular accident (CVA): Total Time Total Time Spent Total Time Spent (In Minutes): 65 Discharge Plan Discharge Items Patient Disposition: Hospice - Home Reason For Visit: STROKE Discharge Diagnosis: Hemorrhagic Stroke -- Brain Hematoma with Midline Shift Goals: You have been hospitalized for an acute medical problem. During your stay at [facility], we have made an effort to correct the problem that brought you to the hospital while keeping you as comfortable as possible. Medications were used to bring your condition under control and your discharge instructions will include directions for any medications you should take after leaving the hospital. Please make sure you see your Primary Care Provider as part of your follow up plan. Activity: Per Instructions section Non-emergency contact: Primary Care Provider Call non-emergency contact if: you have any medication questions Follow-up/Referrals: Evelyn Pham CRNP [Primary Care Provider] - Diet: Nothing by Mouth Addtl Attending Provider Instructions: You have been hospitalized for weakness and found to have a large hemorrhagic CVA (stroke from bleeding) as evident by a large hematoma on imaging along with midline shift causing symptoms. Stroke alert was called and discussion with ER provider and Neurosurgery was completed and felt this was not really ideally surgical candidate and discussions were had to pursue more of a palliative approach. Arrangements have been made for hospice at discharge and you should be met by company in next day. Arrangements have been made for oxygen. You are able to use medications glycopyrrolate every four hours as needed for secretions, atrivan every four hours for anxiety/agitation, and dilaudid as needed for pain or respiratory distress given adverse reaction to morphine which is still an opiate, but more of a cousin and should hopefully have better effects. It has been a pleasure being a part of the medical team providing for you while you have been in the hospital. God Bless. Pending Studies at Discharge: No Stand-Alone Forms: My [facility] Medications and DC Order Prescriptions: New glycopyrrolate 0.2 mg/mL Solution 0.2 mg IV Q4H PRN (Reason: secretions) Qty: 1 RF: 0 ondansetron 4 mg Tablet,Disintegrating 4 mg sublingual Q4H PRN (Reason: nausea and vomiting) Qty: 10 RF: 0 lorazepam 1 mg/0.5 mL syringe 1 mg PO Q6H PRN (Reason: anxiety) Qty: 5 RF: 0 morphine concentrate 100 mg/5 mL (20 mg/mL) solution 5 mg PO Q6H PRN (Reason: pain) Qty: 30 RF: 0 Discontinued levothyroxine [Synthroid] 88 mcg tablet 88 mcg PO DAILY Qty: 30 RF: 2 lisinopril 10 mg tablet 10 mg PO DAILY Qty: 30 RF: 5 Discharge Orders: Discharge Order (Routine); Ordered 09/15/21 Ordered By: Ava Emanuel Admission Data Admit Date/Time: 09/14/21 21:37 Attending Provider: Sky Luke Admit Provider: Argelia Zarate Primary Care Provider: Evelyn Pham Other Providers: Fannie Gillis ; Yesenia Garcia ; [facility],Home Healthcare Other Interventions: Discharge Summary Assessment (RN) Last Done: 09/15/21 09:25 Supervising Physician Co-Signing Physician Notes Family at bedside. Patient will be discharged on hospice. Family is aware patient will likely pass away soon but would prefer he dies at home. Coding Level of Care Code 56876 OBS Care - Discharge Diagnoses Intraparenchymal hematoma of brain S06.360A Encounter type: initial encounter Laterality: unspecified laterality Midline shift of brain due to hematoma G93.89; S06.2X0S Hemorrhagic cerebrovascular accident (CVA) I61.9
== END 2021-09-15 10:56 | disposition hospice, home (50) ==
LOC: 3E 18:34 → ED 18:34 → SUATTDRO 21:37 → 3E 22:38